=== PATIENT | female | born 1985 | race Caucasian/White ===

== ENCOUNTER 2017-04-25 05:51 | Inpatient (IN) | payer OTHER ==
[2017-04-25] MEDS ORDERED: ceFAZolin 2 GM/DEXTROSE 100 ML IV ONE (06:00)
[2017-04-25] MEDS ORDERED: AMINOCAPROIC ACID 5 GM/20 ML VIAL IV ONE (06:00)
[2017-04-25] MEDS ORDERED: niCARdipine/NACL 200 ML IV SCH (06:00)
[2017-04-25] MEDS ORDERED: MANNITOL 20% 50 GM/250 ML BAG IV ONE (06:00)
[2017-04-25] MEDS ORDERED: NOREPINEPHRINE BITARTRATE 16 MG in NS 250 ML IV ONE (06:00)
[2017-04-25] MEDS ORDERED: PHENYLEPHRINE HCL 50 MG in NS 250 ML IV ONE (06:00)
[2017-04-25] MEDS ORDERED: CITRATE DEXTROSE SOLN 500 ML BAG MISC ONE (06:00)
[2017-04-25] MEDS ORDERED: LIDOCAINE 1% 5 ML SDV ID PRN (06:00)
[2017-04-25] MEDS ORDERED: INSULIN REGULAR HUMAN 100 UNIT in NS 100 ML IV ONE (06:00)
[2017-04-25] MEDS ORDERED: SODIUM BICARBONATE 20 MEQ, LIDOCAINE 1% 10 ML in NORMOSOL-R 1,000 ML MISC ONE (06:00)
[2017-04-25] MEDS ORDERED: LR 1,000 ML IV ONE (06:16)
[2017-04-25] MEDS ORDERED: PROTAMINE SULFATE 50 MG/5 ML VIAL IVP ONE (06:34)
[2017-04-25] MEDS ORDERED: ALBUMIN 5% 250 ML BOTTLE IV ONE ×2 (06:34→09:35)
[2017-04-25] MEDS ORDERED: DOPamine/DEXTROSE/250 ML BAG IV ONE (06:35)
[2017-04-25] MEDS ORDERED: niCARdipine/NACL/200 ML BAG IV ONE (06:35)
[2017-04-25] MEDS ORDERED: AMINOCAPROIC ACID 5 GM/20 ML VIAL ONE (06:35)
[2017-04-25] MEDS ORDERED: AMIODARONE HCL 150 MG/3 ML VIAL ONE (06:35)
[2017-04-25] MEDS ORDERED: CALCIUM CHLORIDE 1 GM/10 ML INJ ONE ×2 (06:35→09:27)
[2017-04-25] MEDS ORDERED: NA BICARBONATE 50 MEQ/50 ML VIAL ONE ×2 (06:35→10:55)
[2017-04-25] MEDS ORDERED: ADENOSINE 6 MG/2 ML VIAL ONE (06:35)
[2017-04-25] MEDS ORDERED: MILRINONE/DEXTROSE/100 ML BAG IV ONE (06:35)
[2017-04-25] MEDS ORDERED: LIDOCAINE 2% 100 MG/5 ML SYR ONE ×2 (06:35→07:26)
[2017-04-25] MEDS ORDERED: CITRATE DEXTROSE SOLN 500 ML BAG ONE (06:35)
[2017-04-25] MEDS ORDERED: POTASSIUM Cl (KCl) 20 MEQ/50 ML BAG IV ONE (06:35)
[2017-04-25] MEDS ORDERED: HEPARIN 10,000 UNIT/10 ML MDV ONE (06:36)
[2017-04-25] MEDS ORDERED: MAGNESIUM SULFATE 1 GM/2 ML VIAL ONE (06:36)
[2017-04-25] MEDS ORDERED: ceFAZolin 1 GM VIAL ONE (06:36)
[2017-04-25] MEDS ORDERED: methylPREDNISolone SOD SUCC 1 GM/8 ML VIAL ONE (06:36)
--- NOTE | 2017-04-25 06:47 | PDGENHP ---
History and Physical - Chief Complaint aortic aneurysm, bicuspid aortic valve - History of Present Illness 31F with known ascending aortic aneurysm (4.6 cm on ECHO) and bicuspid aortic valve (mild AI, no ) here for repair of aortic aneurysm with possible root replacement as well as arch repair under circ arrest. Pt c/o mild SOB on exertion as well as mild chest pain. She denies light headedness, syncope, palpitations, abdominal pain, LE edema. Pt has a h/o chronic lower back pain and takes approximately 3 [place] tabs (5/325) daily for 2 years. History Information - Allergies/Home Medication List Allergies/Adverse Reactions: No Known Allergies Allergy (Verified 04/13/17 14:18) Home Medications: Diclofenac Sodium 04/13/17 [Last Taken 04/24/17] [place] 5/325 (*) 04/13/17 [Last Taken 04/23/17] I have personally reviewed and updated: family history, medical history, social history, surgical history - Past Medical History Additional medical history: lower back pain, migraines - Surgical History Reports: appendectomy - Social History Smoking Status: Never smoked Review of Systems Review of Systems: Constitutional: Reports: no symptoms EENMT: Reports: no symptoms Cardiac: Reports: chest pain Respiratory: Reports: shortness of breath Gastrointestinal: Reports: no symptoms Genitourinary: Reports: no symptoms Muscolosketal: Reports: back pain Skin: Reports: no symptoms Neurological: Reports: no symptoms Physical Exam Physical Exam: Temp Pulse Resp BP Pulse Ox 36.8 C 75 20 115/75 95 04/25/17 06:19 04/25/17 06:19 04/25/17 06:19 04/25/17 06:19 04/25/17 06:19 Constitutional: no apparent distress, appears nourished, not in pain Eyes: anicteric sclera Ears, Nose, Mouth, Throat: moist mucous membranes, hearing normal Cardiovascular: regular rate and rhythym, No systolic murmur Peripheral Pulses: 2+: dorsalis-pedis (R), dorsalis-pedis (L) Respiratory: clear to auscultation, No no respiratory distress Gastrointestinal: soft, non-tender abdomen Skin: warm, normal color Neurologic: AAOx3 Psychiatric: interacting appropriately, not anxious, not encephalopathic, thought process linear Lab Data & Imaging Review Patient ABO/Rh A POSITIVE 04/22/17 12:30 Antibody Screen NEGATIVE 04/22/17 12:30 Visualized and Interpreted Chest x-ray results: Yes Chest X-Ray results: no infiltrate Assessment & Plan Assessment: 31F with ascending aortic aneurysm Plan: - Ascending aortic aneurysm repair, possible root replacement, possible arch replacement under circ arrest
[2017-04-25] MEDS ORDERED: MIDAZOLAM 2 MG/2 ML VIAL IVP ONE (06:58)
--- NOTE | 2017-04-25 07:04 | PDANEPAE ---
ANE History of Present Illness Ascending Ao Aneurism and bicuspid AV, now s/f repair, possible circ arrest ANE Past Medical History - Cardiovascular History Hx Hypertension: No Hx Arrhythmias: No Hx Chest Pain: No Hx Coronary Artery / Peripheral Vascular Disease: No Hx CHF / Valvular Disease: Yes Hx Palpitations: No Cardiovascular History Comment: CURRENT DIAGNOSIS - Pulmonary History Hx COPD: No Hx Asthma/Reactive Airway Disease: No Hx Recent Upper Respiratory Infection: No Hx Oxygen in Use at Home: No Hx Sleep Apnea: No Sleep Apnea Screening Result - Last Documented: Negative - Neurologic History Hx Cerebrovascular Accident: No Hx Seizures: No Hx Dementia: No - Endocrine History Hx Diabetes: No - Renal History Hx Renal Disorders: No - Liver History Hx Hepatic Disorders: No - Neurological & Psychiatric Hx Hx Neurological and Psychiatric Disorders: No - Cancer History Hx Cancer: No - Congenital Disorder History Hx Congenital Disorders: No - GI History Hx Gastrointestinal Disorders: No - Other Health History Other Health History: NONE - Chronic Pain History Chronic Pain: Yes (LOWER BACK) - Surgical History Prior Surgeries: CYST/OVARY REMOVED ANE Review of Systems Review of Systems: - Exercise capacity METS (RN): 5 METS ANE Patient History - Allergies Allergies/Adverse Reactions: No Known Allergies Allergy (Verified 04/13/17 14:18) - Home Medications Home medications: home medication list seen and reviewed Home Medications: Diclofenac Sodium 04/13/17 [Last Taken 04/24/17] [place] 5/325 (*) 04/13/17 [Last Taken 04/23/17] - NPO status NPO Status: no food or drink >8 hours NPO Since - Liquids (Date): 04/24/17 NPO Since - Liquids (Time): 23:30 NPO Since - Solids (Date): 04/24/17 NPO Since - Solids (Time): 22:15 - Anes Hx Anes Hx: no prior problems - Smoking Hx Smoking Status: Never smoked - Alcohol Use Alcohol Use: Rarely - Family Anes Hx Family Anes Hx: none Family Hx Anesthesia Complications: NONE ANE Labs/Vital Signs - Labs - CBC WBC: reviewed and okay - Vital Signs Blood Pressure: 115/75 Heart Rate: 75 Respiratory Rate: 20 O2 Sat (%): 95 Height: 160.02 cm Weight: 73.028 kg ANE Physical Exam - Airway Mallampati Score: Class 1 Mouth exam: normal dental/mouth exam - Pulmonary Pulmonary: no respiratory distress - Cardiovascular Cardiovascular: regular rate and rhythym - ASA Status ASA Status: II ANE Anesthesia Plan Anesthesia Plan: general endotracheal anesthesia (R/B/A explained and patient agrees to proceed) Lines/Monitors: arterial line (femoral a-line), central line (+/- PA Cath depending on post op needs), TIM
[2017-04-25] MEDS ORDERED: MINERAL OIL 10 ML VIAL ONE (07:08)
[2017-04-25] MEDS ORDERED: REMIFENTANIL HCL 1 MG VIAL ONE (07:22)
[2017-04-25] MEDS ORDERED: MIDAZOLAM 2 MG/2 ML VIAL ONE ×2 (07:22→07:23)
[2017-04-25] MEDS ORDERED: PROPOFOL/EMULSION 500 MG/50 ML BOTTLE IV ONE (07:23)
[2017-04-25] MEDS ORDERED: ROCURONIUM 100 MG/10 ML VIAL ONE (07:25)
[2017-04-25] MEDS ORDERED: ESMOLOL HCL 100 MG/10 ML VIAL IV ONE (08:12)
[2017-04-25] MEDS ORDERED: LABETALOL HCL 5 MG/ML 20 ML MDV ONE (08:17)
[2017-04-25] MEDS ORDERED: PHENYLEPHRINE HCL 100 MCG/ML SYR ONE (08:32)
[2017-04-25] MEDS ORDERED: fentaNYL 50 MCG PATCH TD ONE (08:45)
[2017-04-25] MEDS ORDERED: DEXAMETHASONE 4 MG/ML VIAL ONE ×2 (08:56)
[2017-04-25] MEDS ORDERED: DEXMEDETOMIDINE HCL 400 MCG in NS 100 ML IV SCH (09:30)
[2017-04-25] MEDS ORDERED: PROPOFOL 200 MG/20 ML VIAL ONE (09:34)
[2017-04-25] MEDS ORDERED: MAGNESIUM SULF 2 GM/WATER 50 ML BAG IV ONE ×2 (09:35→09:36)
[2017-04-25] MEDS ORDERED: SUGAMMADEX SODIUM 200 MG/2 ML VIAL IVP ONE ×2 (09:49→10:07)
[2017-04-25] MEDS ORDERED: ACETAMINOPHEN 325 MG TAB PO PRN (10:16)
[2017-04-25] MEDS ORDERED: POLYETHYLENE GLYCOL 3350 17 GM PKT PO PRN (10:16)
[2017-04-25] MEDS ORDERED: D50W 25 GM/50 ML SYR IVP PRN (10:16)
[2017-04-25] MEDS ORDERED: ACETAMINOPHEN 650 MG SUPP PR PRN (10:16)
[2017-04-25] MEDS ORDERED: CEPACOL LOZENGE PO PRN (10:16)
[2017-04-25] MEDS ORDERED: MEPERIDINE 25 MG/ML SYR IVP PRN (10:16)
[2017-04-25] MEDS ORDERED: PANTOPRAZOLE SODIUM 40 MG in NS 100 ML IV ONE (10:16)
[2017-04-25] MEDS ORDERED: LACTULOSE 20 GM/30 ML UDCUP PO PRN (10:16)
[2017-04-25] MEDS ORDERED: ONDANSETRON DISINTEGRATING 4 MG TAB PO PRN (10:16)
[2017-04-25] MEDS ORDERED: MAGNESIUM HYDROXIDE 30 ML UDCUP PO PRN (10:16)
[2017-04-25] MEDS ORDERED: POTASSIUM Cl (KCl) 50 ML IV PRN (10:16)
[2017-04-25] MEDS ORDERED: BISACODYL 10 MG SUPP PR PRN (10:16)
[2017-04-25] MEDS ORDERED: METOCLOPRAMIDE 10 MG/2 ML VIAL IVP PRN (10:16)
[2017-04-25] MEDS ORDERED: MAGNESIUM SULF 2 GM/WATER 50 ML IV ONE (10:16)
[2017-04-25] MEDS ORDERED: SODIUM CL NASAL 45 ML BTL EACHNARE PRN (10:16)
[2017-04-25] MEDS ORDERED: fentaNYL 100 MCG/2 ML INJ IVP PRN (10:16)
--- NOTE | 2017-04-25 10:19 | POSTOPPROG ---
Post Op Note Date of Operation: 04/25/17 Surgeon: Drake Perez Engraving Patternmaker: Alvarez Anesthesiologist: Adrian Anesthesia: GET(General Endotracheal) Pre-op Diagnosis: asc aneurysm Procedure: resect AA #22 graft, Atriclip Inf/Abcess present in the surg proc area at time of surgery?: No EBL: Minimal
[2017-04-25] MEDS ORDERED: INSULIN REGULAR HUMAN 100 UNIT in NS 100 ML IV SCH (10:30)
[2017-04-25] MEDS ORDERED: NS 1,000 ML IV SCH (10:30)
--- NOTE | 2017-04-25 10:53 | GOP ---
[f rep st] OPERATIVE REPORT DATE OF OPERATION: 04/25/2017 SURGEON: Drake Perez DO TRACK SWEEPER: Keegan Pino P.A.-C. ANESTHESIOLOGIST: Den Campbell M.D. PREOPERATIVE DIAGNOSIS: 1. Bicuspid aortic valve with ascending aortic aneurysm. 2. Mild aortic insufficiency. POSTOPERATIVE DIAGNOSIS: 1. Bicuspid aortic valve with ascending aortic aneurysm. 2. Mild aortic insufficiency. PROCEDURE PERFORMED: 1. Replacement of ascending aorta with a #22 Hemashield graft. 2. Reduction of sinotubular junction. 3. AtriClip to the left atrial appendage. FINDINGS: The patient was noted to have a 4.5-4.7 mid ascending aortic aneurysm with questionable ex tension into the transverse arch. The patient was noted to have a bovine arch. CTA reconstruction d id not completely reveal that arch, and for that reason she was prepared for potential circulatory ar rest. She was consented for surgery. DESCRIPTION OF PROCEDURE: She was brought to the operating room and intubated. Monitoring lines wer e placed. Transesophageal echo confirmed mild aortic insufficiency with a bicuspid aortic valve, without stenos is. The sinuses appeared to be nondilated. A sternotomy was performed. She was heparinized. Inspection of the aneurysm appeared that it tapere d down to 2.2-2.3 cm at the innominate artery. Therefore, no circ arrest was warranted. She was hep arinized and cannulated in the transverse arch and right atrium. Cardiopulmonary bypass was begun. A cardioplegic arrest was obtained with antegrade cardioplegia, retrograde cardioplegia, topical hypo thermia and systemic cooling. It should be noted that with the heart empty, there was no ejection fr om the ventricle consistent with minimal aortic insufficiency. We were also able to maintain an adeq uate palpable depression in the aorta while giving antegrade cardioplegia. I then excised the ascending aorta. Prior to doing that, I put a 35 mm AtriClip across the left atri al appendage prophylactically. The aorta was very thin-walled and quite friable. The sinuses were m inimally dilated. She had a true bicuspid valve without thickening or calcification. I considered r esecting the midportion of the noncoronary cusp in order to improve the regurgitation, although it wa s minimal, and I was concerned that if it failed we would have to replace it. I felt that reducing s inotubular junction may help improve it as well. The patient was prepared that someday she may need valve addressed surgically or with catheter based therapy. We then sized the patient for a 22 mm Hemashield graft that was sutured in place with continuous runn ing 3-0 Prolene suture, both proximally and distally, reinforced in several sites. BioGlue was appli ed. The cross-clamp was removed with suction on the ascending aortic vent. Spontaneous cardiac acti vity was noted to resume. The patient was easily weaned from bypass after the air was deaired through the apex and ascending ao rta in Trendelenburg. The heparin was reversed with protamine. The cannula was removed and oversewn . Two ventricular pacing wires and 2 mediastinal drains were placed. The thymic fat and pericardium were closed. The chest was closed in standard fashion. The patient returned to the ICU in stable c ondition. /[id number]/MODL
[2017-04-25] MEDS: KETOROLAC 15 MG/1 ML SDV IVP SCH ×2 (11:17→18:09)
[2017-04-25] MEDS: MUPIROCIN 2% 22 GM OINT NS SCH ×2 (11:20→20:49)
[2017-04-25] MEDS ORDERED: NA BICARBONATE 50 MEQ/50 ML VIAL IV ONE (11:45)
--- NOTE | 2017-04-25 12:34 | POSTANESTH ---
Post Anesthetic Evaluation Cardiovascular Status: Normal, Stable (0 drips) Respiratory Status: Normal, Stable, Tx Decrease in SpO2 (post anesthesia/by- pass minimal O2 requirement) Pain Control: Adequate, Prn Tx Ordered Nausea/Vomiting Control: Adequate, Prn Tx Ordered Complications Possibly Related to Anesthesia: None Noted
[2017-04-25] MEDS: ALBUMIN 5% 250 ML IV PRN ×3 (12:36→15:13)
[2017-04-25] MEDS: ceFAZolin 2 GM/DEXTROSE 100 ML IV SCH ×2 (13:43→22:10)
[2017-04-25] MEDS ORDERED: ALBUMIN 5% 250 ML IV ONE (15:30)
--- NOTE | 2017-04-25 16:55 | ASMTCMCOM ---
CM Note CM Note Notes: 52 year old female admitted for chest pain, hypotension, sepsis, R LL PNA. Patient has a hx of cocaine induced cardiomyopathy, polysubstance abuse, MA, EF=10%. CM to follow for discharge needs. Date Signed: 04/25/2017 04:54 PM Electronically Signed By:Genia Cheng LCSW
[2017-04-25] MEDS: ONDANSETRON 4 MG/2 ML VIAL IVP PRN (18:09)
[2017-04-25] MEDS: HYDROCODONE/APAP 5/325 TAB PO PRN ×2 (18:09→22:10)
[2017-04-25 19:05] LABS: CALCULATED OXYGEN SATURATION 99 % (92-95); O2 CONCENTRATIION 40 % (0-100)
[2017-04-25] MEDS: SENNOSIDES/DOCUSATE SODIUM TAB PO SCH (20:49)
[2017-04-25] MEDS: POTASSIUM Cl (KCl) 20 MEQ in D5W 50 ML IV PRN (20:49)
--- NOTE | 2017-04-25 21:12 | CPEKG ---
Heart Rate: 88 RR Interval: 682 P-R Interval: 160 QRSD Interval: 126 QT Interval: 404 QTC Interval: 489 P Randolph: 60 QRS Randolph: 70 T Wave Randolph: 11 EKG Severity - ABNORMAL ECG - EKG Impression: SINUS RHYTHM EKG Impression: RIGHT BUNDLE BRANCH BLOCK Electronically Signed By: Marco Buchanan 01-May-2017 08:32:35
[2017-04-26] MEDS: KETOROLAC 15 MG/1 ML SDV IVP SCH ×5 (00:08→22:14)
[2017-04-26] MEDS: POTASSIUM Cl (KCl) 20 MEQ in D5W 50 ML IV PRN (02:15)
[2017-04-26] MEDS: HYDROCODONE/APAP 5/325 TAB PO PRN ×5 (04:18→19:47)
[2017-04-26 04:47] LABS: % IMMATURE GRANULYOCYTES 0.4 % (0.0-1.1); ABSOLUTE IMMATURE GRANULOCYTES 0.05 10^3/uL (0.00-0.10); ADD DIFF? NO; ADD MORPH? NO; ADD SCAN? NO; ATYPICAL LYMPHOCYTE FLAG 0 (0-99); FRAGMENT RBC FLAG 0 (0-99); HEMATOCRIT 30.5 % (38.0-47.0); HEMOGLOBIN 10.1 g/dL (12.6-16.3); LEFT SHIFT FLG 0 (0-99); LIPEMIA HEMOLYSIS FLAG 80 (0-99); MEAN CELL HEMOGLOBIN 32.5 pg (27.9-34.1); MEAN CELL HEMOGLOBIN CONCENTR. 33.1 g/dL (32.4-36.7); MEAN CELL VOLUME 98.1 fL (81.5-99.8); MEAN PLATELET VOLUME 10.2 fL (8.7-11.7); PLATELET CLUMPS FLAG 0 (0-99); PLATELET COUNT 161 10^3/uL (150-400); RED BLOOD CELL COUNT 3.11 10^6/uL (4.18-5.33); RED CELL DISTRIBUTION WIDTH 13.1 % (11.5-15.2)
[2017-04-26 05:15] LABS: ANION GAP 8 mEq/L (8-16); CALCIUM 7.2 mg/dL (8.5-10.4); CARBON DIOXIDE 24 mEq/l (22-31); CHLORIDE 109 mEq/L (97-110); CREATININE 0.5 mg/dL (0.6-1.0); GLOMERULAR FILTRATION RATE > 60; GLUCOSE 105 mg/dL (70-100); POTASSIUM 4.5 mEq/L (3.5-5.2); SODIUM 141 mEq/L (134-144)
[2017-04-26] MEDS: HEPARIN 5,000 UNIT/0.5 ML SYR SC SCH ×3 (06:03→22:17)
[2017-04-26] MEDS: ceFAZolin 2 GM/DEXTROSE 100 ML IV SCH ×3 (06:03→22:14)
--- NOTE | 2017-04-26 07:18 | SOAPPROG ---
SOAP Progress Note Assessment/Plan: Assessment: POD#1 Asc ao replacement w #22 hemashield graft, reduction of sinotubular junction, prophylactic AtriClip ligation left atrial appendage Aneurysmal ascending aorta - Replaced with a dacron interposition graft. Extubated in the OR. Hemodynamically stable early postop course. No vasoactive support, tachy/bradyarrhythmias, or backup pacing. No sig fluid overload. Antithrombotic prophylaxis with ASA alone pending stability of rhythm. AF prophylaxis with BB as tolerated. BAV with mild AI/no - Valve spared and competence improved with STJ reduction. Surveillance per cardiology. Acute expected blood loss anemia - Stable. No blood products transfused. Acute on chronic pain - Hx daily [place] use for low back pain. Postop pain managed with multimodal analgesia, incl fentanyl patch and scheduled toradol. Plan: Routine POD#1 orders re lines, drains, orals, and mobility. IVF prn SBP < 90. Tx to PCU. 04/26/17 07:14 Subjective: Doing ok. A little weak. Adequate analgesia. Tolerating crackers/sips&chips without nausea. OOB without dizziness. Objective: Vital Signs Temp Pulse Resp BP Pulse Ox 36.8 C 100 16 94/59 L 96 04/26/17 04:00 04/26/17 06:00 04/26/17 06:00 04/26/17 06:00 04/26/17 06:00 Laboratory Results 04/26/17 04:20 04/26/17 04:20 04/25/17 04/26/17 04/27/17 05:59 05:59 05:59 Intake Total 1782.6 Output Total [address], likely reactive to pain. Holding MAP > 65. Min suppl O2 requirement. CXR -> no PTX, hypoventilation, bibasilar atelectasis. No sig CTOP. Balanced I/Os. Labs as expected. Physical Exam - Physical Exam General Appearance: alert, no apparent distress Respiratory: lungs clear, other (blakes x 2 y-d to pleurovac, serosang drainage , no air leak) Cardiac/Chest: regular rate, rhythm, friction rub, other (Sternotomy CDI. Vwire intact.) Abdomen: normal bowel sounds, non-tender, soft Skin: warm/dry Extremities: other (no visible edema) ICD10 Worksheet Patient Problems: Problems Problem Status Onset Acute blood loss anemia Acute Aneurysm, ascending aorta Acute S/P ascending aortic aneurysm repair Acute Chronic lower back pain Chronic Mild aortic insufficiency Chronic Narcotic abuse, continuous Chronic
[2017-04-26] MEDS ORDERED: traMADol 50 MG TAB PO PRN (08:51)
[2017-04-26] MEDS: SENNOSIDES/DOCUSATE SODIUM TAB PO SCH ×2 (09:14→19:47)
[2017-04-26] MEDS: MUPIROCIN 2% 22 GM OINT NS SCH (09:21)
--- NOTE | 2017-04-26 09:23 | ASMTCMCOM ---
CM Note CM Note Notes: Sorry the last CM note was written on the wrong patient. Please disregard. Virginia Newman, 31 year old female admitted for mild CP, SOB. Found to have an aortic aneurysm, bicuspid aortic valve. Patient has a HX of low back pain and migraines. Live s with her . CM to follow for possible discharge needs. Date Signed: 04/26/2017 09:23 AM Electronically Signed By:Genia Cheng LCSW
[2017-04-26] MEDS ORDERED: PROTOCOL POTASSIUM 1 DOSE MISC PRN (09:28)
[2017-04-26] MEDS: ONDANSETRON 4 MG/2 ML VIAL IVP PRN (11:14)
[2017-04-26] MEDS: PANTOPRAZOLE SODIUM 40 MG TAB PO SCH (11:57)
--- NOTE | 2017-04-26 16:44 | GCON ---
[f rep st] CONSULTATION PULMONARY/CRITICAL CARE CONSULTATION DATE OF CONSULTATION: 04/25/2017 REFERRING PHYSICIAN: Drake Perez DO REASON FOR REFERRAL: Evaluation and management of anemia and hyperglycemia. HISTORY: The patient is a 31-year-old woman who underwent a CT scan of her chest and head due to migraine headaches, which revealed an ascending aortic aneurysm of 4.4 cm with a normal anulus. Echocardiogram demonstrated bicuspid aortic valve with no significant regurgitation or stenosis. She has just mild occasional shortness of breath. She was referred for cardiothoracic consultation to Dr. Perez, who recommended that she proceed with an aortic root replacement, which was performed today. Her intraoperative course was unremarkable and she was extubated prior to arriving in the intensive care unit. She is now awake and reports significant pain at her sternotomy site. She denies cough or shortness of breath currently. PAST MEDICAL HISTORY: Low back pain, for which she takes p.r.n. [place]. ALLERGIES: None. SOCIAL HISTORY: The patient drinks alcohol infrequently. She does not smoke. FAMILY HISTORY: Negative for any history of valvular heart disease or aortic aneurysms. REVIEW OF SYSTEMS: A 10-point review of systems adds nothing to the history of present illness. PHYSICAL EXAMINATION: GENERAL: The patient is awake, alert, and in just mild distress with trying to move due to her chest pain. VITAL SIGNS: Blood pressure is 99/49, with a heart rate of 78. She is afebrile. Oxygen saturations are 100% on 2 L. HEENT: Normocephalic and atraumatic. No icterus. NECK: No adenopathy. Trachea is midline. CHEST: Clear to auscultation. CARDIAC: Regular rate and rhythm without murmur. She has a midline sternotomy scar. ABDOMEN: Soft, nontender. Bowel sounds are present. EXTREMITIES: No clubbing, cyanosis, or edema. NEURO: The patient is awake, alert, and is able to move all extremities, with no gross motor or sensory deficits. LABORATORY: A blood glucose is 185. The patient is currently on an insulin drip. Chemistry group is unremarkable. Hemoglobin level is 10.5, down slightly from 11.2 earlier in the day. Her hemoglobin was 14.4 at the time of admission, prior to surgery. A chest x-ray shows sternal wires and some left lower lobe atelectasis. Images reviewed. ASSESSMENT: 1. Status post ascending aortic aneurysm repair. The patient had an unremarkable intraoperative course. 2. Bicuspid aortic valve. She has no significant stenosis or regurgitation. 3. Chronic low back pain. This has been managed with [place] and nonsteroidals. Currently, this pain is not bothering her as much as her chest pain. 4. Anemia. This is likely due to expected acute blood loss. 5. Hyperglycemia. The patient's blood sugars are moderately elevated. She has no prior history of diabetes. She has been started on an insulin drip. RECOMMENDATIONS: 1. Continue tramadol, fentanyl and morphine p.r.n. pain. This could be changed to tramadol or another oral agent. 2. Continue insulin drip. She can probably be transitioned to sliding scale insulin if necessary by tomorrow, given that she does not have a prior history of diabetes or hyperglycemia. 3. Follow hemoglobin. /[id number]/MODL MTDD
[2017-04-27] MEDS: HYDROCODONE/APAP 5/325 TAB PO PRN ×5 (02:53→20:24)
[2017-04-27 03:08] LABS: % IMMATURE GRANULYOCYTES 0.4 % (0.0-1.1); ABSOLUTE IMMATURE GRANULOCYTES 0.05 10^3/uL (0.00-0.10); ADD DIFF? NO; ADD MORPH? NO; ADD SCAN? NO; ATYPICAL LYMPHOCYTE FLAG 0 (0-99); FRAGMENT RBC FLAG 0 (0-99); HEMATOCRIT 28.1 % (38.0-47.0); HEMOGLOBIN 9.5 g/dL (12.6-16.3); LEFT SHIFT FLG 0 (0-99); LIPEMIA HEMOLYSIS FLAG 90 (0-99); MEAN CELL HEMOGLOBIN 33.6 pg (27.9-34.1); MEAN CELL HEMOGLOBIN CONCENTR. 33.8 g/dL (32.4-36.7); MEAN CELL VOLUME 99.3 fL (81.5-99.8); MEAN PLATELET VOLUME 10.8 fL (8.7-11.7); PLATELET CLUMPS FLAG 50 (0-99); PLATELET COUNT 153 10^3/uL (150-400); RED BLOOD CELL COUNT 2.83 10^6/uL (4.18-5.33); RED CELL DISTRIBUTION WIDTH 12.9 % (11.5-15.2)
[2017-04-27 03:24] LABS: ANION GAP 4 mEq/L (8-16); CARBON DIOXIDE 27 mEq/l (22-31); CHLORIDE 101 mEq/L (97-110); CREATININE 0.6 mg/dL (0.6-1.0); GLOMERULAR FILTRATION RATE > 60; GLUCOSE 118 mg/dL (70-100); SODIUM 132 mEq/L (134-144)
[2017-04-27] MEDS: MUPIROCIN 2% 22 GM OINT NS SCH ×2 (04:02→07:39)
[2017-04-27] MEDS: HEPARIN 5,000 UNIT/0.5 ML SYR SC SCH ×3 (06:07→20:24)
[2017-04-27] MEDS: KETOROLAC 15 MG/1 ML SDV IVP SCH (06:07)
--- NOTE | 2017-04-27 07:25 | SOAPPROG ---
SOAP Progress Note Assessment/Plan: Assessment: POD#2 Asc ao replacement w #22 hemashield graft, reduction of sinotubular junction, prophylactic AtriClip ligation left atrial appendage Aneurysmal ascending aorta - Replaced with a dacron interposition graft. Extubated in the OR. Hemodynamically stable early postop course. No vasoactive support, tachy/bradyarrhythmias, or backup pacing. No sig fluid overload. Antithrombotic prophylaxis with ASA alone pending stability of rhythm. AF prophylaxis with BB as tolerated. BAV with mild AI/no - Valve spared and competence improved with STJ reduction. Surveillance per cardiology. Acute expected blood loss anemia - Stable. No blood products transfused. Acute on chronic pain - Hx daily [place] use for low back pain. Postop pain managed with multimodal analgesia, incl fentanyl patch and scheduled toradol. Plan: TCPWs clipped and carlo drains removed. Transition toradol to ibuprofen. Lasix 20 mg po x 1. Inc activity and pulm toilet. Dispo - Likely home tomorrow. 04/27/17 07:24 Subjective: Slept well. Adequate analgesia. Independent mobility. Improving appetite. Eager for shower. Hopeful for home tomorrow. Objective: Vital Signs Temp Pulse Resp BP Pulse Ox 36.8 C 95 18 104/56 L 96 04/27/17 07:09 04/27/17 07:09 04/27/17 07:09 04/27/17 07:09 04/27/17 07:09 Laboratory Results 04/27/17 03:00 04/27/17 03:00 04/26/17 04/27/17 04/28/17 05:59 05:59 05:59 Intake Total 1782.6 1380 Output Total 1760 745 Balance 22.[address] 90s-100s. MAP > 70. Excellent sats on 1 Lpm. CXR -> improved aeration, sm left pl effusion. CTOP at removal criteria. Positive fluid balance. +5 kg overall. Labs as expected. Physical Exam - Physical Exam General Appearance: alert, no apparent distress Respiratory: decreased breath sounds (bases, L>R), other (blakes x 2 to bulb suction, serosang drainage; both tubes pulled without incident.) Cardiac/Chest: regular rate, rhythm, tachycardia, other (Sternum grossly stable. Sternotomy CDI. Vwires clipped.) Abdomen: non-tender, soft Skin: warm/dry Extremities: swelling (1+ generalized) ICD10 Worksheet Patient Problems: Problems Problem Status Onset Acute blood loss anemia Acute Aneurysm, ascending aorta Acute S/P ascending aortic aneurysm repair Acute Chronic lower back pain Chronic Mild aortic insufficiency Chronic Narcotic abuse, continuous Chronic
[2017-04-27] MEDS: SENNOSIDES/DOCUSATE SODIUM TAB PO SCH ×2 (07:38→20:24)
[2017-04-27] MEDS: PANTOPRAZOLE SODIUM 40 MG TAB PO SCH (07:38)
[2017-04-27] MEDS: ASPIRIN EC 81 MG TAB PO SCH (07:38)
[2017-04-27] MEDS ORDERED: FUROSEMIDE 20 MG TAB PO SCH (09:00)
[2017-04-27] MEDS ORDERED: POTASSIUM CL 10 MEQ TAB PO SCH (09:00)
[2017-04-27] MEDS: ONDANSETRON 4 MG/2 ML VIAL IVP PRN (13:02)
[2017-04-27] MEDS: IBUPROFEN 600 MG TAB PO SCH ×3 (14:09→20:24)
--- NOTE | 2017-04-27 14:33 | ASMTCMCOM ---
CM Note CM Note Notes: 04/27/2017 Case Management Note Reviewed chart, spoke w/ Kathleen ENRIQUE. No case management d/c needs identified d/t pt age and activity levels prior to admission. Pt is with three children. Case Management d/c poc: Home independent w/family support when medically stable with follow up as directed. Case Management available if needs change. Date Signed: 04/27/2017 02:32 PM Electronically Signed By:Stephanie Abraham RN
[2017-04-28] MEDS: HYDROCODONE/APAP 5/325 TAB PO PRN ×3 (04:05→13:03)
[2017-04-28] MEDS: HEPARIN 5,000 UNIT/0.5 ML SYR SC SCH (04:06)
--- NOTE | 2017-04-28 06:45 | SOAPPROG ---
SOAP Progress Note Assessment/Plan: POD#3 Asc ao replacement w #22 hemashield graft, reduction of sinotubular junction, prophylactic AtriClip ligation left atrial appendage Aneurysmal ascending aorta - Replaced with a dacron interposition graft. Extubated in the OR. Hemodynamically stable early postop course. No vasoactive support, tachy/bradyarrhythmias, or backup pacing. No sig fluid overload. Antithrombotic prophylaxis with ASA alone pending stability of rhythm. AF prophylaxis with BB as tolerated. BAV with mild AI/no - Valve spared and competence improved with STJ reduction. Surveillance per cardiology. Acute expected blood loss anemia - Stable. No blood products transfused. Acute on chronic pain - Hx daily [place] use for low back pain. Pain currently well-controlled. Subjective: Minor incisional chest pain. Denies SOB. Objective: Vital Signs Temp Pulse Resp BP Pulse Ox 36.7 C 97 12 87/60 L 95 04/28/17 04:00 04/28/17 04:00 04/28/17 04:00 04/28/17 04:00 04/28/17 04:00 Laboratory Results 04/27/17 03:00 04/27/17 03:00 04/27/17 04/28/17 04/29/17 05:59 05:59 05:59 Intake Total 1380 900 Output Total 745 1450 Balance 635 -550 Physical Exam - Physical Exam General Appearance: WD/WN, alert, no apparent distress EENT: No scleral icterus (R), No scleral icterus (L) Neck: normal inspection Respiratory: No respiratory distress Cardiac/Chest: regular rate, rhythm Abdomen: non-tender, soft, No distended Skin: normal color, warm/dry Extremities: No pedal edema Neuro/Psych: no motor/sensory deficits, alert, normal mood/affect, oriented x 3 ICD10 Worksheet Patient Problems: Problems Problem Status Onset Acute blood loss anemia Acute Aneurysm, ascending aorta Acute S/P ascending aortic aneurysm repair Acute Chronic lower back pain Chronic Mild aortic insufficiency Chronic Narcotic abuse, continuous Chronic
[2017-04-28 07:16] VITALS: BP 105/63; PULSE 103; RESP 20; TEMP 98.4
[2017-04-28] MEDS ORDERED: NS 1,000 ML IV SCH (08:00)
[2017-04-28] MEDS: PANTOPRAZOLE SODIUM 40 MG TAB PO SCH (09:27)
[2017-04-28] MEDS: ASPIRIN EC 81 MG TAB PO SCH (09:28)
[2017-04-28] MEDS: IBUPROFEN 600 MG TAB PO SCH ×2 (09:28→13:02)
[2017-04-28] MEDS: SENNOSIDES/DOCUSATE SODIUM TAB PO SCH (09:30)
--- NOTE | 2017-04-28 10:49 | PDHOMEO2F ---
Home Oxygen Face to Face Home Orders: I certify that a physician or a nurse practitioner or physician's senior court office assistant has had a [id number] encounter with this patient on the date of this order due to the diagnosis listed, which relates to the primary reason the patient requires home oxygen. Alternative treatments have been tried, or considered, and deemed ineffective. It is anticipated that supplemental oxygen will result in improvement with treatment. Home oxygen qualifying diagnosis: s/p asc ao repair, hypoxemia, atelectasis, SOB SpO2 on room air (%): 85 Frequency of home oxygen needed: continuous Home oxygen liters per minute: 1 Home oxygen delivery device: nasal cannula Concentrator: Yes E-tanks for mobility and back up: Yes If ordering portable O2, is the patient mobile in the home?: Yes I certify that, based on these findings, the home oxygen is medically necessary for this patient for the following length of time. Length of time home oxygen needed: 1 month
[2017-04-28 11:46] VITALS: O2SAT 85
--- NOTE | 2017-04-28 12:24 | PDDCSUM ---
Discharge Summary Discharge Summary: ADMISSION DATE: 04/25/17 DISCHARGE DATE: 04/29/17 ADMISSION DX: 1. Ascending aortic aneurysm 2. Bicuspid aortic valve 3. Mild aortic insufficiency 4. Chronic lower back pain with daily narcotic use DISCHARGE DX: 1. Ascending aortic aneurysm 2. Bicuspid aortic valve 3. Mild aortic insufficiency 4. Chronic lower back pain with daily narcotic use 5. Acute blood loss anemia PROCEDURES 04/25/17, Drake Perez: 1. Replacement of ascending aorta with #22 Hemashield graft, reduction of sinotubular junction, AtriClip to left atrial appendage HOSPITAL COURSE BY PROBLEM LIST 1. Ascending aortic aneurysm s/p replacement - stable postoperative course. Aspirin prescribed for thromboprophylaxis 2. Bicuspid aortic valve with mild AI - stable. Further surveillance as per cardiology. 3. Chronic lower back pain - adequate control with multimodal analgesia. 4. Acute blood loss anemia - stable without the need for transfusions. CONDITION Good DISPOSITION Home, self-care ACTIVITY Pt was instructed on sternal precautions, activity limitations, and which problems to call [facility] with. Please see Discharge Plan in chart for specifics. D/C MEDICATIONS Continue: 1. Hydrocodone/APAP 5/325 [[place] 5/325 (*)] 1 - 2 tab PO Q4HRS PRN New: 1. Aspirin EC [Aspirin EC 81 mg (*)] 81 mg PO DAILY 2. Ibuprofen [Motrin (*)] 600 mg PO Q6H PRN 3. Polyethylene Glycol 3350 [Miralax 17 gm (*)] 17 gm PO DAILY PRN 4. Sennosides/Docusate Sodium [Senokot-S] 1 - 2 tab PO BID 5. traMADol [Ultram 50 mg (*)] 50 mg PO Q4HRS PRN BREAKTHROUGH PAIN Discontinue: 1. Diclofenac (may continue once ibuprofen is stopped) PENDING STUDIES/LABS 1. CXR prior to surgical follow-up F/U APPOINTMENTS 1. Drake Perez - 05/10/17, 10:45 AM
--- NOTE | 2017-04-28 14:41 | ASDISCHSUM ---
Discharge Information Plan Status:Home with No Needs Medically Cleared to Leave:04/28/2017 Discharge Date:04/28/2017 02:15 PM CM D/C Disposition:Home, Routine, Self-Care ADT D/C Disposition:Home, Routine, Self-Care Projected Discharge Date:04/28/2017 12:00 AM Transportation at D/C:Family Discharge Delay Reason: Follow-Up Date:04/28/2017 12:00 AM Discharge Slot: Final Diagnosis: Placement Information Patient Contact Information Contact Name:MARSHALL Relationship: Address: Work Phone: City: [facility] Phone: State/Zip Code: Email: Financial Information Financial Class:HMO and PPO Plans Primary Plan Desc:[employer] Primary Plan Number:[id number] Secondary Plan Desc: Secondary Plan Number: Assessment Information [facility] CM Progress Note CM Note CM Note Notes: 52 year old female admitted for chest pain, hypotension, sepsis, R LL PNA. Patient has a hx of cocaine induced cardiomyopathy, polysubstance abuse, AR, EF=10%. CM to follow for discharge needs. Date Signed: 04/25/2017 04:54 PM Electronically Signed By:Genia Cheng LCSW [facility] CM Progress Note CM Note CM Note Notes: Sorry the last CM note was written on the wrong patient. Please disregard. Virginia Newman, 31 year old female admitted for mild CP, SOB. Found to have an aortic aneurysm, bicuspid aortic valve. Patient has a HX of low back pain and migraines. Live s with her . CM to follow for possible discharge needs. Date Signed: 04/26/2017 09:23 AM Electronically Signed By:Genia Cheng LCSW [facility] CM Progress Note CM Note CM Note Notes: 04/27/2017 Case Management Note Reviewed chart, spoke w/ Kathleen ENRIQUE. No case management d/c needs identified d/t pt age and activity levels prior to admission. Pt is with three children. Case Management d/c poc: Home independent w/family support when medically stable with follow up as directed. Case Management available if needs change. Date Signed: 04/27/2017 02:32 PM Electronically Signed By:Stephanie Abraham RN Intervention Information
== END 2017-04-28 14:15 | disposition home or self-care (01) | DRG 269 ==
LOC: F3N 05:51 → F2N 09:28 → F2W 04-26 13:32
PROVIDERS: ADMIT Thoracic Surgery (Cardiothoracic Vascular Surgery); ATTEND Thoracic Surgery (Cardiothoracic Vascular Surgery)
PROC: 5A1221Z Performance of Cardiac Output, Continuous (ICD-10-PCS; principal; 2017-04-25 07:15)
PROC: 04R00JZ Replacement of Abdominal Aorta with Synthetic Substitute, Open Approach (ICD-10-PCS; principal; 2017-04-25 07:15)
PROC: 02L70CK Occlusion of Left Atrial Appendage with Extraluminal Device, Open Approach (ICD-10-PCS; principal; 2017-04-25 07:15)
DX: I71.2 Thoracic aortic aneurysm, without rupture (principal); Q23.1 Congenital insufficiency of aortic valve; D62 Acute posthemorrhagic anemia; E16.2 Hypoglycemia, unspecified; G43.909 Migraine, unspecified, not intractable, without status migrainosus; M54.5 Low back pain; F11.90 Opioid use, unspecified, uncomplicated
CPT/HCPCS: 82947-QW; 97116-GP; 97161-GP; 97166-GO; 97530-GO; 97535-GO; C1768; J0153; J0282; J0690; J1100; J1265; J1644; J1815; J1885; J2001; J2250; J2260; J2370; J2405; J2704; J2720; J2930; J3010; J3490; J7060; P9041

== ENCOUNTER → 2018-01-05 | Outpatient (CLI) | payer OTHER ==
[~2018-01-05] MED LIST: IOPAMIDOL (ISOVUE 370) 100 ML BTL IV ONE
== END ==
LOC: FIMAGING 11:06
PROVIDERS: ATTEND Thoracic Surgery (Cardiothoracic Vascular Surgery)
DX: Z98.890 Other specified postprocedural states (principal); Z86.79 Personal history of other diseases of the circulatory system
CPT/HCPCS: Q9967